=== PATIENT | female | born 1985 | race Caucasian/White ===

== ENCOUNTER 2016-11-03 22:46 | Emergency (ER) | payer OTHER ==
[2016-11-03 23:52] LABS: Basophils % (A) 1 %; CH 32.3; Eosinophils # (A) 0.1 k/uL (0-0.7); Eosinophils % (A) 1 %; HCT 39.5 % (34.0-46.0); HDW 2.32; Luc # (Auto) 0.05; Luc % (Auto) 1; Lymphocytes # (A) 1.3 k/uL (1.0-4.8); Lymphocytes % (A) 25 %; MCH 31.4 pg (25.0-35.0); MCHC 32.9 g/dL (31.0-37.0); MCV 95.4 fL (80.0-100.0); Monocytes # (A) 0.2 k/uL (0-1.0); Monocytes % (A) 4 %; Neutrophils # (A) 3.6 k/uL (1.3-7.7); Neutrophils % (A) 69 %; RBC 4.14 m/uL (3.80-5.40); RDW 13.6 % (11.5-15.5); WBC 5.2 k/uL (3.8-10.6); WBC (Perox) 5.24
[2016-11-04 00:07] LABS: ALT 39 U/L (9-52); AST 38 U/L (14-36); Alkaline Phosphatase 47 U/L (38-126); Anion Gap 14 mmol/L; Blood Urea Nitrogen 11 mg/dL (7-17); Calcium 8.8 mg/dL (8.4-10.2); Carbon Dioxide 22 mmol/L (22-30); Chloride 106 mmol/L (98-107); Glucose 98 mg/dL (74-99); Non-African American GFR(MDRD) >60 (>60 ml/min/1.73 sqM); Potassium 3.7 mmol/L (3.5-5.1); Sodium 142 mmol/L (137-145); Total Bilirubin 0.4 mg/dL (0.2-1.3); Total Protein 7.1 g/dL (6.3-8.2)
[2016-11-04 00:10] LABS: Alcohol 177 mg/dL; INR 1.1 (<1.2); Partial Thromboplastin Time 25.1 sec (22.0-30.0); Prothrombin Time 10.9 sec (9.0-12.0)
[2016-11-04 00:16] VITALS: RESP 16
[2016-11-04 00:16] LABS: Creatine Kinase 224 U/L (30-135)
[2016-11-04 00:29] LABS: Troponin I <0.012 ng/mL (0.000-0.034)
[2016-11-04 00:31] LABS: Creatine Kinase MB 2.6 ng/mL (0.0-2.4)
[2016-11-04 00:48] LABS: Amorphous Sediment,Urine Rare /hpf; Appearance,Urine Cloudy (Clear); Bacteria,Urine Rare /hpf; Bilirubin,Urine Negative (Negative); Glucose,Urine (UA) Negative (Negative); Ketones,Urine Negative (Negative); Leukocyte Esterase,Urine Negative (Negative); Mucus,Urine Rare /hpf; Nitrite,Urine Negative (Negative); PH, Urine 5.5 (5.0-8.0); Particle Count 4489; Protein,Urine Negative (Negative); RBC,Urine 1 /hpf (0-5); Specific Gravity,Urine 1.006 (1.001-1.035); Squamous Epithelial Cell,Urine 7 /hpf (0-4); UA Billing (MACRO vs. MICRO) MICRO; Urobilinogen,Urine <2.0 mg/dL (<2.0); WBC,Urine 6 /hpf (0-5)
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
[2016-11-04 02:05] VITALS: BP 116/79; PULSE 103; TEMP 97.6
== END 2016-11-04 02:05 | disposition home or self-care (01) ==
LOC: EC 22:46
DX: S16.1XXA Strain of muscle, fascia and tendon at neck level, initial encounter (principal); Z88.1 Allergy status to other antibiotic agents; V48.5XXA Car driver injured in noncollision transport accident in traffic accident, initial encounter; Y92.410 Unspecified street and highway as the place of occurrence of the external cause
CPT/HCPCS: 36415; 70450; 72125; 80053; 80306; 80320; 81001; 81025; 82550; 82553; 83605; 84484; 85025; 85610; 85730; 86850; 86900; 86901; 99285